=== PATIENT | male | born 1975 | race Two or more races ===

== ENCOUNTER 2020-02-23 00:28 | Emergency (ER) | payer OTHER ==
[~2020-02-23] VITALS: Ht 170.2 cm; Wt 90.9 kg
[2020-02-23] MEDS ORDERED: MAALOX/LIDOCAINE/NYSTATIN SUSP 5 ML ORAL.SYG MM ONE (01:45)
[2020-02-23] MEDS ORDERED: DEXAMETHASONE 4 MG TABLET PO ONE (01:45)
[2020-02-23 02:50] VITALS: BP 137/86
== END 2020-02-23 02:55 | disposition home or self-care (01) ==
LOC: EMS 00:28
DX: J02.9 Acute pharyngitis, unspecified (principal); Z20.828 Contact with and (suspected) exposure to other viral communicable diseases; F17.210 Nicotine dependence, cigarettes, uncomplicated
CPT/HCPCS: 87430; 99283; J8540